=== PATIENT | female | born 2000 | race Caucasian/White ===

== ENCOUNTER 2021-11-17 03:31 | Emergency (ER) | payer OTHER ==
[~2021-11-17] VITALS: Ht 157.5 cm; Wt 102.1 kg
== END 2021-11-17 10:41 | disposition home or self-care (01) ==
LOC: ER 03:31
DX: R13.10 Dysphagia, unspecified (principal)

== ENCOUNTER 2024-07-13 20:00 | Inpatient (IN) | payer OTHER ==
[~2024-07-13] VITALS: Ht 157.5 cm; Wt 59.0 kg
[2024-07-13] MEDS ORDERED: 0.9 % SODIUM CHLORIDE 1,000 ML IV ONE (20:45)
[2024-07-13] MEDS ORDERED: KETOROLAC TROMETHAMINE 30 MG VIAL IV ONE (20:45)
[2024-07-13] MEDS ORDERED: FAMOtidine 10 MG/ML (4ML VIAL) IV ONE (20:45)
[2024-07-13] MEDS ORDERED: KETOROLAC TROMETHAMINE 30 MG VIAL ONE (21:17)
[2024-07-13] MEDS ORDERED: FAMOTIDINE/PF 20 MG/2 ML VIAL ONE (21:18)
[2024-07-13 21:45] LABS: BASO % 0.1 % (0.1-1.2); EOS # 0.15 (0.04-0.54); HEMATOCRIT 35.7 % (34.1-44.9); HEMOGLOBIN 11.7 g/dL (11.2-15.7); LYMPH # 1.75 (1.18-3.74); LYMPH % 11.8 % (19.3-53.1); MEAN CORPUSCULAR HEMOGLOBIN 25.1 pg (25.6-32.2); MONO # 1.51 (0.24-0.82); MONO % 10.2 % (4.7-12.5); NEUT # 11.35 (1.56-6.13); NEUT % 76.6 % (34.0-71.1); PLATELET COUNT 293 K/uL (163-369); RED BLOOD COUNT 4.66 M/uL (3.93-5.22)
[2024-07-13 22:06] LABS: PH,URINE 6.5 (5.0-8.0); URINE APPEARANCE Clear; URINE BILIRRUBIN Negative (NEGATIVE); URINE BLOOD Negative; URINE COLOR Yellow; URINE GLUCOSE Negative (NEGATIVE); URINE LEUKOCYTE Small; URINE NITRATE Negative; URINE PROTEIN 30 (NEGATIVE)
[2024-07-13 22:10] LABS: URINE BACTERIA 2041.5 uL (0.0-1933); URINE EPITHELIAL CELLS 25.7 uL (0.0-38.8); URINE RBC 13.4 uL (0.0-20.8); URINE WBC 42.8 uL (0.0-23.2)
[2024-07-13 22:12] LABS: URINE CAST 0.14 uL (0.0-1.40); URINE KETONE >=160 (NEGATIVE)
[2024-07-13 22:12] LABS: ALBUMIN 3.3 gm/dL (3.4-5.0); ALKALINE PHOSPHATASE 64 U/L (50-136); ALT/SGPT 16 U/L (12-78); ANION GAP 12 (10.0-20.0); AST/SGOT 11 U/L (15-37); BILIRUBIN TOTAL 0.62 mg/dL (0.3-1.2); BLOOD UREA NITROGEN 9 mg/dL (7-18); BUN CREA RATIO 20 (7.0-25.0); CALCIUM 8.6 mg/dL (8.5-10.1); CARBON DIOXIDE 22 mEq/L (21-32); CHLORIDE 110 mmol/L (98-107); CREATININE SERUM 0.46 mg/dL (0.55-1.02); GFR 165.51; GLOBULINA 3.3 G/DL (2.4-3.5); GLUCOSE FASTING 77 mg/dL (65-100); HCG QUANTITATIVE < 1 mUI/mL (1-3); OSMOLALITY SERUM 277 MOSM/KG (275-295); POTASSIUM 3.75 mEq/L (3.5-5.1); SODIUM 140 mmol/L (136-145); TOTAL PROTEIN 6.6 gm/dL (6.4-8.2)
[2024-07-13] MEDS ORDERED: PIPERACILLIN/TAZOBACTAM SODIUM 3.375 GM VIAL IV ONE ×2 (22:15→22:24)
[2024-07-13 22:21] LABS: INR 1.13; PROTHROMBIN TIME 12.2 SECONDS (9.0-11.5)
[2024-07-14] MEDS ORDERED: KETOROLAC TROMETHAMINE 30 MG VIAL IV STA (01:33)
[2024-07-14] MEDS ORDERED: KETOROLAC TROMETHAMINE 30 MG VIAL ONE (01:45)
[2024-07-14] MEDS ORDERED: ONDANSETRON HCL 4 MG in 0.9 % SODIUM CHLORIDE 50 ML IV PRN (07:45)
[2024-07-14] MEDS ORDERED: MORPHINE SULFATE 2 MG/ML CARTRIDGE IV PRN (07:45)
[2024-07-14] MEDS ORDERED: PIPERACILLIN/TAZOBACTAM SODIUM 3.375 GM in 0.9 % SODIUM CHLORIDE 100 ML IV SCH (08:00)
[2024-07-14] MEDS ORDERED: CEFAZOLIN SODIUM 1,000 MG VIAL ONE (09:24)
[2024-07-14] MEDS ORDERED: BUPIVACAINE HCL/MPF 0.5% 30ML VIAL ONE (09:24)
[2024-07-14 13:16] VITALS: BP 92/62; O2SAT 98
[2024-07-14 15:00] VITALS: BP 88/58
[2024-07-14] MEDS ORDERED: SODIUM CL 0.9% 100 ML IV.SOLN IV ONE (16:47)
[2024-07-15] VITALS: BP 116/81; O2SAT 97
[2024-07-15 09:44] VITALS: BP 128/85; O2SAT 95
== END 2024-07-15 12:47 | disposition home or self-care (01) | DRG 399 ==
LOC: ER 20:10 → SURH 07-14 07:56
PROVIDERS: General Practice; Student in an Organized Health Care Education/Training Program; ADMIT Internal Medicine; ATTEND Internal Medicine
PROC: BW21YZZ Computerized Tomography (CT Scan) of Abdomen and Pelvis using Other Contrast (ICD-10-PCS; 2024-07-14)
PROC: 0DTJ4ZZ Resection of Appendix, Percutaneous Endoscopic Approach (ICD-10-PCS; principal; 2024-07-14 10:30)
DX: K35.890 Other acute appendicitis without perforation or gangrene (principal); R10.13 Epigastric pain; R10.9 Unspecified abdominal pain; R50.9 Fever, unspecified